=== PATIENT | male | born 1995 | race Caucasian/White ===

== ENCOUNTER 2019-09-02 10:50 | Emergency (ER) | payer SELFPAY ==
[2019-09-02 11:18] VITALS: BP 110/70
--- NOTE | 2019-09-02 11:27 | Emergency Department Report ---
Chief Complaint: Skin Rash Stated Complaint: RASH ALL OVER Time Seen by Provider: 09/02/19 11:17 - HPI History of Present Illness: 24 y/o male comes in for a rash since yesterday that itches. Patient has no known allergy or new clothes, pet or detergent. Denies any fever, chill, chest pain or sob. No difficulties in swallowing. - Exam Vital Signs: Vital Signs 09/02/19 11:16 Temperature 98.9 F Pulse Rate 66 Respiratory 18 Rate Blood Pressure 110/70 O2 Sat by Pulse 99 Oximetry Physical Exam: Vital stable. NAD no intoxic Skin papular lesion that are red no swelling Throat erythematous. MSE screening note: Focused history and physical exam performed. Due to findings the following was ordered: 24 y/o male comes in for a rash since yesterday that itches. Patient has no known allergy or new clothes, pet or detergent. Denies any fever, chill, chest pain or sob. No difficulties in swallowing. Patient is stable non toxic referral to Dr. Pina. ED Disposition for MSE Disposition: MED SCREENING EXAM-LEFT Is pt being admited?: No Does the pt Need Aspirin: No Condition: Stable Referrals: ESTEFANY PINA MD [Staff Physician] - 3-5 Days
== END 2019-09-02 11:45 | disposition left against medical advice (07) ==
LOC: ED 10:50
DX: R21 Rash and other nonspecific skin eruption (principal); L29.9 Pruritus, unspecified
CPT/HCPCS: 99281